=== PATIENT | female | born 1995 | race Caucasian/White ===

== ENCOUNTER 2019-04-02 21:51 | Emergency (ER) | payer OTHER ==
[2019-04-02 22:13] VITALS: BP 140/88; PULSE 95; RESP 18; TEMP 98.3
[2019-04-03 00:02] LABS: Appearance,Urine Cloudy (Clear); Bacteria,Urine Rare /hpf; Bilirubin,Urine Negative (Negative); Blood,Urine Moderate (Negative); Color,Urine Yellow; Glucose,Urine (UA) 4+ (Negative); Hyaline Casts,Urine 10 /lpf (0-2); Ketones,Urine Negative (Negative); Leukocyte Esterase,Urine Moderate (Negative); Mucus,Urine Moderate /hpf; Nitrite,Urine Negative (Negative); Protein,Urine Trace (Negative); RBC,Urine 40 /hpf (0-5); Specific Gravity,Urine 1.039 (1.001-1.035); Squamous Epithelial Cell,Urine 10 /hpf (0-4); WBC,Urine 7 /hpf (0-5)
--- NOTE | 2019-04-03 00:35 | US ---
EXAM: US Pelvis Complete, Transabdominal CLINICAL HISTORY: IUD Placement verification TECHNIQUE: Real-time transabdominal pelvic ultrasound (complete) with image documentation. COMPARISON: No relevant prior studies available. FINDINGS: Limitations: Patient's body habitus, transabdominal technique, and under distention of the urinary bladder. The patient declined endovaginal imaging. Uterus/cervix: Not visualized due to the patient's body habitus, transabdominal technique, and under distention of the urinary bladder. Right ovary: Not visualized due to the patient's body habitus, transabdominal technique, and under distention of the urinary bladder. No adnexal mass. Left ovary: Not visualized due to the patient's body habitus, transabdominal technique, and under distention of the urinary bladder. No adnexal mass. Free fluid: No free fluid. IMPRESSION: Nondiagnostic transabdominal pelvic ultrasound. The uterus and ovaries were not visualized.
--- NOTE | 2019-04-03 04:24 | ED ---
Female Urogenital HPI - General Chief complaint: Vaginal Bleeding Stated complaint: Female Time Seen by Provider: 04/02/19 22:23 Source: patient Mode of arrival: ambulatory Limitations: no limitations - History of Present Illness Initial comments: 23-year-old female patient presents to the emergency department today for evaluation of suprapubic cramping and vaginal bleeding. Patient states she's had an IUD in since August and only gets very mild spotting. She states that this bleeding has been heavier than usual. States she's had wear one pad per day. She is not having to change her pad. States that the blood ranges from light brown to pink in color. She states she is having some mild low back pain. When she felt her IUD string she felt like it maybe longer. She is concerned that her IUD is out of place. She did not take a test. She denies any fever or chills. Denies any nausea, vomiting, constipation, or diarrhea. Denies any hematuria, dysuria, urinary frequency, urinary urgency. Patient denies any recent rash, shortness breath, chest pain, numbness, tingling, dizziness, weakness, headache, visual changes, or any other complaints. - Related Data Allergies Allergy/AdvReac Type Severity Reaction Status Date / Time No Known Allergies Allergy Verified 04/02/19 22:13 Review of Systems ROS Statement: Those systems with pertinent positive or pertinent negative responses have been documented in the HPI. ROS Other: All systems not noted in ROS Statement are negative. Past Medical History Past Medical History: No Reported History History of Any Multi-Drug Resistant Organisms: None Reported Past Surgical History: Section Past Psychological History: No Psychological Hx Reported Smoking Status: Current every day smoker Past Alcohol Use History: Occasional Past Drug Use History: None Reported General Exam Limitations: no limitations General appearance: alert, in no apparent distress, other (This is a well- developed, well-nourished adult female patient in no acute distress. Vital signs upon presentation are temperature 98.3F, pulse 95, respirations 18, blood pressure 140/88, pulse ox 97% on room air.) Eye exam: Present: normal appearance, PERRL, EOMI. Absent: scleral icterus, conjunctival injection, periorbital swelling ENT exam: Present: normal exam, normal oropharynx, mucous membranes moist Respiratory exam: Present: normal lung sounds bilaterally. Absent: respiratory distress, wheezes, rales, rhonchi, stridor Cardiovascular Exam: Present: regular rate, normal rhythm, normal heart sounds. Absent: systolic murmur, diastolic murmur, rubs, gallop, clicks GI/Abdominal exam: Present: soft, normal bowel sounds. Absent: distended, tenderness, guarding, rebound, rigid External exam: Present: normal external exam Speculum exam: Present: normal speculum exam, vaginal bleeding (Mild vaginal bleeding), other (IUD string visualized, do not see any IUD protruding from the cervix.) Neurological exam: Present: alert, oriented X3, CN II-XII intact Psychiatric exam: Present: normal affect, normal mood Skin exam: Present: warm, dry, intact, normal color. Absent: rash Course Vital Signs 04/02/19 22:10 Temperature 98.3 F Pulse Rate 95 Respiratory 18 Rate Blood Pressure 140/88 O2 Sat by Pulse 97 Oximetry Medical Decision Making - Medical Decision Making 23-year-old female patient presented to the emergency department today for jaylen luation of suprapubic cramping and vaginal bleeding. She was concerned IUD may be displaced is her string feels longer than normal. Patient did provide urine sample hCG was negative. There is presence of blood and white blood cells, this was sent for culture. Pelvic examination was performed, IUD string was visualized, there is no evidence of her treating IUD from the cervix. I did see a mild vaginal bleeding. Patient was sent for ultrasound however she refused transvaginal ultrasound so this was a very limited study, unable to visualize IUD due to body habitus. Prior to results coming back patient stated she had to leave and did not want to wait for results. She did sign AGAINST MEDICAL ADVICE form. She is instructed to follow-up with her clinical lab scientist for further evaluation as soon as possible. Return parameters were discussed in detail. She verbalizes understanding. - Lab Data Lab Results 04/02/19 04/02/19 Range/Units 23:18 23:18 Urine Color Yellow Urine Appearance Cloudy H (Clear) Urine pH 6.0 (5.0-8.0) Ur Specific [place] 1.039 H (1.001-1.035) Urine Protein Trace H (Negative) Urine Glucose (UA) 4+ H (Negative) Urine Ketones Negative (Negative) Urine Blood Moderate H (Negative) Urine Nitrite Negative (Negative) Urine Bilirubin Negative (Negative) Urine Urobilinogen 2.0 (<2.0) mg/dL Ur Leukocyte Esterase Moderate H (Negative) Urine RBC 40 H (0-5) /hpf Urine WBC 7 H (0-5) /hpf Ur Squamous Epith Cells 10 H (0-4) /hpf Urine Bacteria Rare H (None) /hpf Hyaline Casts 10 H (0-2) /lpf Urine Mucus Moderate H (None) /hpf Urine HCG, Qual Not Detected (Not Detectd) - Radiology Data Radiology results: report reviewed Transabdominal ultrasound was obtained. Report was reviewed in its entirety. Impression by Dr. Caputo shows nondiagnostic strands abdominal pelvic ultrasound. Uterus and ovaries were not visualized. Disposition Clinical Impression: Vaginal bleeding, Abdominal pain Disposition: Left Against Medical Advice Condition: Undetermined Referrals: None,Stated [Primary Care Provider] - 1-2 days
== END 2019-04-03 00:26 | disposition left against medical advice (07) ==
LOC: EC 21:51
DX: N93.9 Abnormal uterine and vaginal bleeding, unspecified (principal); R10.9 Unspecified abdominal pain; M54.5 Low back pain; Z32.02 Encounter for pregnancy test, result negative; F17.200 Nicotine dependence, unspecified, uncomplicated; Z97.5 Presence of (intrauterine) contraceptive device; Z53.20 Procedure and treatment not carried out because of patient's decision for unspecified reasons
CPT/HCPCS: 76856; 81001; 81025; 99284